=== PATIENT | male | born 1985 | race American Indian/Alaskan Native ===

== ENCOUNTER 2019-04-13 16:29 | Emergency (ER) | payer SELFPAY ==
--- NOTE | 2019-04-13 16:51 | Emergency Department Report ---
- General Stated complaint: HBP/(R) ARM TINGLING Time Seen by Provider: 04/13/19 16:48 Source: patient, EMS Mode of arrival: Ambulatory Limitations: No Limitations - History of Present Illness Initial comments: Patient is a 33-year-old male that presents emergency room with complaints of right-sided numbness and weakness and elevated blood pressure. Patient states his symptoms started 11 AM today. Patient's last known well time 11 AM. Patient denies chest pain shortness of breath. Patient states she's never officially been diagnosed with high blood pressure. Patient arrived via EMS. Patient ambulatory in the ER. MD Complaint: focal weakness, numbness -: Sudden Location: RUE, R hand, RLE Severity: severe Quality: numbness Consistency: constant Improves with: none Worsens with: none Associated Symptoms: headaches - Related Data Previous Rx's Medication Instructions Recorded Last Taken Type Prednisone [predniSONE 10 mg 10 mg PO .TAPER #1 tab.ds.pk 04/13/19 Unknown Rx (6-Day Pack, 21 Tabs)] hydroCHLOROthiazide [HCTZ] 25 mg PO QDAY #30 tablet 04/13/19 Unknown Rx Allergies Allergy/AdvReac Type Severity Reaction Status Date / Time No Known Allergies Allergy Verified 04/13/19 18:45 ED Review of Systems ROS: Stated complaint: HBP/(R) ARM TINGLING Other details as noted in HPI Constitutional: weakness. denies: chills, fever Eyes: denies: eye pain, eye discharge, vision change ENT: denies: ear pain, throat pain Respiratory: denies: cough, shortness of breath, wheezing Cardiovascular: denies: chest pain, palpitations Endocrine: no symptoms reported Gastrointestinal: denies: abdominal pain, nausea, diarrhea Genitourinary: denies: urgency, dysuria Musculoskeletal: denies: back pain, joint swelling, arthralgia Skin: denies: rash, lesions Neurological: headache, weakness, numbness. denies: paresthesias Psychiatric: denies: anxiety, depression Hematological/Lymphatic: denies: easy bleeding, easy bruising ED Past Medical Hx - Past Medical History Previous Medical History?: No - Surgical History Past Surgical History?: No - Family History Family history: no significant - Social History Smoking Status: Current Every Day Smoker Substance Use Type: None - Medications Home Medications: Home Medications Medication Instructions Recorded Confirmed Last Taken Type Prednisone [predniSONE 10 mg 10 mg PO .TAPER #1 tab.ds.pk 04/13/19 Unknown Rx (6-Day Pack, 21 Tabs)] hydroCHLOROthiazide [HCTZ] 25 mg PO QDAY #30 tablet 04/13/19 Unknown Rx ED Physical Exam - General Limitations: No Limitations General appearance: alert, in no apparent distress - Head Head exam: Present: atraumatic, normocephalic - Eye Eye exam: Present: normal appearance - ENT ENT exam: Present: mucous membranes moist - Neck Neck exam: Present: normal inspection - Respiratory Respiratory exam: Present: normal lung sounds bilaterally. Absent: respiratory distress - Cardiovascular Cardiovascular Exam: Present: regular rate, normal rhythm. Absent: systolic murmur, diastolic murmur, rubs, gallop - GI/Abdominal GI/Abdominal exam: Present: soft, normal bowel sounds - Rectal Rectal exam: Present: deferred - Extremities Exam Extremities exam: Present: normal inspection - Back Exam Back exam: Present: normal inspection - Neurological Exam Neurological exam: Present: alert, oriented X3 - Psychiatric Psychiatric exam: Present: normal affect, normal mood - Skin Skin exam: Present: warm, dry, intact, normal color. Absent: rash - Assessment Assessment Interval: Baseline - Level of Consciousness 1a. Level of Consciousness: alert/keenly responsive - LOC Questions 1b. LOC Questions: answers both correctly - LOC Command 1c. LOC Commands: performs tasks correctly - Best Gaze 2. Best Gaze: normal - Visual 3. Visual: no visual loss - Facial Palsy 4. Facial Palsy: normal symmetrical movement - Motor Arm 5a. Motor Arm Left: no drift 5b. Motor Arm Right: no drift - Motor Leg 6a. Motor Leg Left: no drift 6b. Motor Leg Right: no drift - Limb Ataxia 7. Limb Ataxia: absent - Sensory 8. Sensory: mild/moderate sensory loss - Best Language 9. Best Language: no aphasia - Dysarthria 10. Dysarthria: normal - Extinction and Inattention 11. Extinction/Inattention: no abnormality - Scoring Total Score: 1 Stroke Severity: Minor Stroke ED Course Vital Signs 04/13/19 04/13/19 04/13/19 16:46 18:19 18:40 Temperature 97.9 F Pulse Rate 76 70 85 Respiratory 18 18 Rate Blood Pressure 188/111 166/104 Blood Pressure 166/93 [Left] O2 Sat by Pulse 100 100 Oximetry 04/13/19 04/13/19 19:05 20:20 Temperature 98.2 F 98.2 F Pulse Rate 78 77 Respiratory 16 16 Rate Blood Pressure Blood Pressure 156/94 142/91 [Left] O2 Sat by Pulse 100 100 Oximetry - Reevaluation(s) Reevaluation #1: I discussed plan of care with patient. Patient agrees plan of care. Patient will be given aspirin and hydralazine for his blood pressure. 04/13/19 17:43 Reevaluation #2: Asians blood pressure improved. I discussed all results with patient. I disc ussed plan of care outpatient. Patient agrees with plan of care and admission. Patient will be admitted to the hospital service. 04/13/19 18:35 - Consultations Consultation #1: I Discussed case with neurologist. Neurologist saw the patient. Dr. Pineda recommends admission for stroke workup to include MRI of head and neck. 04/13/19 17:37 Consultation #2: Hospitalist consult for admission. Hospitalist admit patient. 04/13/19 18:36 ED Medical Decision Making - Lab Data Result diagrams: 04/13/19 17:39 04/13/19 17:39 - EKG Data -: EKG Interpreted by Me EKG shows normal: sinus rhythm, axis, intervals, QRS complexes, ST-T waves Rate: normal - Radiology Data Radiology results: report reviewed, image reviewed interpreted by me: No acute findings on chest x-ray. No acute findings on CT scan of the head. - Medical Decision Making Patient is 33-year-old male that presents emergency room with complaints of numbness to the right upper and lower extremity and elevated blood pressure. Neurologist consultation early in the ER stay. Neurologist recommends admission. Patient found to have elevated blood pressure given hydralazine. Patient's labs unremarkable. Patient admitted to the hospitalist service. - Differential Diagnosis CVA. Encephalopathy. Hypertensive urgency. Critical Care Time: Yes Critical care time in (mins) excluding proc time.: 35 Critical care attestation.: If time is entered above; I have spent that time in minutes in the direct care of this critically ill patient, excluding procedure time. Critical Care Time: 35 minutes ED Disposition Clinical Impression: Weakness, Right sided numbness, Hypertensive emergency Stroke Qualifiers: CVA mechanism: unspecified Qualified Code(s): I63.9 - Cerebral infarction, unspecified Headache Qualifiers: Headache type: unspecified Headache chronicity pattern: acute headache Intractability: not intractable Qualified Code(s): R51 - Headache Disposition: TO HOME OR SELFCARE Is pt being admited?: Yes Does the pt Need Aspirin: No Condition: Stable Prescriptions: hydroCHLOROthiazide [HCTZ] 25 mg PO QDAY #30 tablet Prednisone [predniSONE 10 mg (6-Day Pack, 21 Tabs)] 10 mg PO .TAPER #1 tab.ds.pk Referrals: PRIMARY CARE, [Primary Care Provider] - 7 Days Time of Disposition: 18:37
[2019-04-13] MEDS ORDERED: hydrALAZINE 20 MG/1 ML INJ IV ONE (17:39)
--- NOTE | 2019-04-13 17:47 | Emergency Department Report ---
ED Neuro Deficit HPI - General Chief Complaint: High BP Stated Complaint: HBP/(R) ARM TINGLING Time Seen by Provider: 04/13/19 16:48 Source: patient, RN/MD, EMS Mode of arrival: Ambulatory Limitations: No Limitations - History of Present Illness Initial Comments: [facility] STAT Neurology Consult Chief Complaint: Right-sided numbness HPI: Asked to see this patient in emergent telemedicine consultation utilizing interactive audio and video technologies. Consultation was performed with assistance of ancillary / medical staff at bedside. Verbal consent to perform the examination with telemedicine was obtained. Patient agreed to proceed with the consultation for acute stroke protocol. 33-year-old right-handed -[place] male who comes to the emergency room for evaluation of right-sided numbness, dizziness, and headaches. Patient denies any past medical history. He denies any history of migraine headaches. He does not take any medications or aspirin. He has not followed up with a primary care in quite some time. Patient states around 11 AM, he had just finished taking shower when he had right hand numbness and tingling. He then became dizzy and described a headache all over his head. He also had tingling all over his head. He described the numbness and tingling going from his right hand up into his forearm. He called EMS, and then noted right leg numbness and tingling. While in the ER, he also was noted to have some mild right-sided weakness. He does have some neck pain. However, he denies any recent neck trauma or fall. No recent cervical manipulation. He was noted to be hypertensive in the ER at 188/111 which is new for him. PMH: Denies. SOC: Positive for tobacco abuse and alcohol use. No illicit drug use. Patient is . FMH: Negative for stroke. Positive for hypertension. ROS: 13 point review of systems were reviewed with the patient, and are all negative with the exception of the aforementioned in the history of present illness. VS: Temperature is 97.9 F, pulse 76, respiration 18, blood pressure 188/111, oxygen saturation 100% Exam: Patient is in no apparent distress. Patient appears as stated age. No obvious acute respiratory or cardiac distress. Patient is well groomed and well-nourished. 1a- LOC: Keenly responsive - 0 1b- LOC questions: Answers both questions correctly - 0 1c- LOC commands- Performs both tasks correctly- 0 2- Gaze: Normal; no gaze paresis or gaze deviation - 0 3- Visual Benz: normal, no Visual field deficit - 0 4- Facial movements: no facial palsy - 0 5- Upper limb motor right arm drift - 1 6- Lower limb motor right leg drift - 1 7- Limb Coordination: absent ataxia - 0 8- Sensory: right arm and leg sensory loss - 1 9- Language - No aphasia - 0 10- Speech - No dysarthria -0 11- Neglect / Extinction - none found - 0 NIHSS score: 3 Diagnostic Data: CT head and labs are pending Medical Data Reviewed: 1.Data?reviewed include clinical labs, radiology,?and medical tests; 2.Tests?results discussed w/performing or interpreting physician; 3.Obtaining/reviewing old medical records; 4.Obtaining?case history from another source; 5.Independent?review of image, tracing, or specimen. Medical Decision Making: - Extensive number of diagnosis or management options are considered below. - Extensive amount of complex data reviewed. - High risk of complication and/or morbidity or mortality are associated with differential diagnostic considerations below. - There may be?uncertain?outcome and increased probability of prolonged functional impairment or high probability of severe prolonged functional impairment associated with some of these differential diagnosis. Differential Diagnosis for Stroke: 1.?Cardioembolic?stroke 2. Small vessel disease/lacune 3. Thromboembolic, cfgiie-ck-sjqdyi mechanism 4.?Hypercoagulable?state-related infarct 5. Transient ischemic attack 6. Thrombotic mechanism, large artery disease Assessment: 1. Right-sided numbness and weakness. Possible stroke versus cervical spine pathology. 2. Possible hypertension 3. Tobacco abuse Recommendations: Patient can be admitted to the hospital for further work-up of his symptoms. Start the patient on a baby aspirin. Allow permissive hypertension. Check MRI brain with and without contrast to rule out any acute intracranial process or demyelinating process. Check MRI of the cervical spine with and without contrast to rule out any acute cervical cord process or demyelinating process. Check echocardiogram to gauge his cardiac function. Check carotid ultrasound. Maintain the patient on telemetry to look for paroxysmal atrial fibrillation. Consult PT, OT, and ST. Check hemoglobin A1c, lipid panel, and urine drug screen. Continue supportive care. Thank you for allowing [facility] to participate in the care of your patient. Please call me, Dr. Grier, with any questions at [phone]. Case discussed with the ER staff and Dr. Cleaning. Severity: severe - Related Data Home Medications: Home Medications Medication Instructions Recorded Confirmed Last Taken No Known Home Medications [No 04/13/19 04/13/19 Unknown Reported Home Medications] Allergies/Adverse Reactions: Allergies Allergy/AdvReac Type Severity Reaction Status Date / Time No Known Allergies Allergy Unverified 04/13/19 16:45 ED Review of Systems ROS: Stated complaint: HBP/(R) ARM TINGLING Other details as noted in HPI Constitutional: weakness. denies: chills, fever Eyes: denies: eye pain, eye discharge, vision change ENT: denies: ear pain, throat pain Respiratory: denies: cough, shortness of breath, wheezing Cardiovascular: denies: chest pain, palpitations Endocrine: no symptoms reported Gastrointestinal: denies: abdominal pain, nausea, diarrhea Genitourinary: denies: urgency, dysuria Musculoskeletal: denies: back pain, joint swelling, arthralgia Skin: denies: rash, lesions Neurological: headache, weakness, numbness. denies: paresthesias Psychiatric: denies: anxiety, depression Hematological/Lymphatic: denies: easy bleeding, easy bruising ED Past Medical Hx - Past Medical History Previous Medical History?: No - Surgical History Past Surgical History?: No - Social History Smoking Status: Current Every Day Smoker Substance Use Type: None - Medications Home Medications: Home Medications Medication Instructions Recorded Confirmed Last Taken Type No Known Home Medications [No 04/13/19 04/13/19 Unknown History Reported Home Medications] ED Neuro Physical Exam - General Limitations: No Limitations General appearance: alert, in no apparent distress Suspected Stroke: Yes - NIHSS Assessment Interval: Baseline 1a. Level of Consciousness: alert/keenly responsive 1b. LOC Questions: answers both correctly 1c. LOC Commands: performs tasks correctly 2. Best Gaze: normal 3. Visual: no visual loss 4. Facial Palsy: normal symmetrical movement 5b. Motor Arm Right: drift 5a. Motor Arm Left: no drift 6a. Motor Leg Left: no drift 6b. Motor Leg Right: drift 7. Limb Ataxia: absent 8. Sensory: mild/moderate sensory loss 9. Best Language: no aphasia 10. Dysarthria: normal 11. Extinction/Inattention: no abnormality Total Score: 3 Stroke Severity: Minor Stroke ED Course Vital Signs 11/17/19 16:46 Temperature 97.9 F Pulse Rate 76 Respiratory 18 Rate Blood Pressure 188/111 O2 Sat by Pulse 100 Oximetry Critical care attestation.: If time is entered above; I have spent that time in minutes in the direct care of this critically ill patient, excluding procedure time. ED Disposition Clinical Impression: Stroke Disposition: DC-[id number] OP ADMIT IP TO THIS HOSP Is pt being admited?: Yes Does the pt Need Aspirin: Yes Condition: Stable Referrals: PRIMARY CARE, [Primary Care Provider] - 3-5 Days
[2019-04-13 17:48] LABS: Basophils # (Auto) 0.1 K/mm3 (0.0-0.1); Basophils % (Auto) 1.4 % (0.0-1.8); Eosinophils # (Auto) 0.5 K/mm3 (0.0-0.4); Eosinophils % (Auto) 8.8 % (0.0-4.3); Hematocrit 42.6 % (35.5-45.6); Hemoglobin 13.8 gm/dl (11.8-15.2); Lymphocytes # (Auto) 1.7 K/mm3 (1.2-5.4); Lymphocytes % (Auto) 28.8 % (13.4-35.0); Mean Corpuscular HGB Conc 32 % (32-34); Mean Corpuscular Volume 79 fl (84-94); Monocytes # (Auto) 0.4 K/mm3 (0.0-0.8); Monocytes % (Auto) 7.6 % (0.0-7.3); Platelet Count 208 K/mm3 (140-440); Red Cell Distribution Width 15.4 % (13.2-15.2)
[2019-04-13 17:59] LABS: INR 1.03 (0.87-1.13)
[2019-04-13 18:00] LABS: Partial Thromboplastin Time 29.5 Sec. (24.2-36.6)
--- NOTE | 2019-04-13 18:06 | XRay Report ---
CHEST 1 VIEW INDICATION / CLINICAL INFORMATION: Weakness. COMPARISON: 07/06/2009 FINDINGS: SUPPORT DEVICES: None. HEART / MEDIASTINUM: No significant abnormality. LUNGS / PLEURA: No significant pulmonary or pleural abnormality. No pneumothorax. ADDITIONAL FINDINGS: No significant additional findings. IMPRESSION: 1. No significant change Signer Name: Bird Ruiz MD Signed: 04/13/2019 6:01 PM Workstation Name: [id number]
[2019-04-13 18:10] LABS: Creatine Kinase MB 1.2 ng/mL (0.0-4.0)
[2019-04-13 18:12] LABS: Alanine Aminotransferase 14 units/L (7-56); Albumin 4.8 g/dL (3.9-5); BUN/Creatinine Ratio 9; Blood Urea Nitrogen 10 mg/dL (9-20); Calcium 9.6 mg/dL (8.4-10.2); Hemolysis Index 7
--- NOTE | 2019-04-13 18:18 | Cat Scan Report ---
CT head/brain wo con INDICATION / CLINICAL INFORMATION: 33 years Male; Weakness. TECHNIQUE: Routine CT head without contrast. All CT scans at this location are performed using CT dos e reduction for ALARA by means of automated exposure control. COMPARISON: None. FINDINGS: BRAIN / INTRACRANIAL CONTENTS: No acute hemorrhage, mass effect, midline shift, hydrocephalus, or acu te, large territorial infarct. No chronic infarct or focal atrophy. Normal brain volume and ventricul ar/sulcal size for age. Isolated periventricular white matter low density areas seen around the atriu m of the left lateral ventricle. This is nonspecific. Considering the age, these could be dilated per ivascular space. Other possibility is a focal chronic lacune. CRANIOCERVICAL JUNCTION: No significant abnormality. ORBITS: No significant abnormality of visualized orbits. SINUSES / MASTOIDS: No significant abnormality of the visualized paranasal sinuses or mastoid air jorge ls. ADDITIONAL FINDINGS: None. IMPRESSION: I do not see an acute parenchymal lesion or acute territorial infarction. Signer Name: Bryn Maier MD Signed: 04/13/2019 6:13 PM Workstation Name: [id number]
[2019-04-13] MEDS: ASPIRIN 325 MG TAB PO ONE ×2 (18:20→18:29)
[2019-04-13] MEDS ORDERED: hydroCHLOROthiazide 25 MG TAB PO ONE (18:36)
--- NOTE | 2019-04-13 19:15 | XRay Report ---
XR spine cervical 2-3V INDICATION / CLINICAL INFORMATION: arm pain. COMPARISON: None available. FINDINGS: BONES/JOINT(S): No vertebral fracture. Normal alignment. Minimal degenerative disc disease at C4-5 an d C5-6 with mild endplate osteophyte formation. SOFT TISSUES: No significant abnormality. ADDITIONAL FINDINGS: None. Signer Name: Mayo Harley MD Signed: 04/13/2019 7:11 PM Workstation Name: [id number]
[2019-04-13 19:31] LABS: Amphetamine Screen,Urine PRESUMPTIVE NEGATIVE; Benzodiazepines Screen,Urine PRESUMPTIVE NEGATIVE; Cannabinoid Screen,Urine PRESUMPTIVE NEGATIVE; Cocaine Screen,Urine PRESUMPTIVE NEGATIVE; Methadone Screen,Urine PRESUMPTIVE NEGATIVE; Opiate Screen,Urine PRESUMPTIVE NEGATIVE
--- NOTE | 2019-04-13 19:59 | Event Note ---
33 YO Male presents to ED for evaluation. Pt found to have Cervical Radiculopathy with Right arm numbness and weakness. Pt treeted with supportive care. Pt medically optimized and back to usual state of health. Pt discharged home and instructed to f/u pcp 3-5 days. Pt discharge with physical therapy. Pt counseled regarding need for surgical intervention if symptoms nonresponsive to physical therapy. ED Physical Exam - General Limitations: No Limitations General appearance: alert, in no apparent distress - Head Head exam: Present: atraumatic, normocephalic - Eye Eye exam: Present: normal appearance - ENT ENT exam: Present: mucous membranes moist - Neck Neck exam: Present: normal inspection - Respiratory Respiratory exam: Present: normal lung sounds bilaterally. Absent: respiratory distress - Cardiovascular Cardiovascular Exam: Present: regular rate, normal rhythm. Absent: systolic murmur, diastolic murmur, rubs, gallop - GI/Abdominal GI/Abdominal exam: Present: soft, normal bowel sounds - Rectal Rectal exam: Present: deferred - Extremities Exam Extremities exam: Present: normal inspection - Back Exam Back exam: Present: normal inspection - Neurological Exam Neurological exam: Present: alert, oriented X3 - Psychiatric Psychiatric exam: Present: normal affect, normal mood - Skin Skin exam: Present: warm, dry, intact, normal color. Absent: rash - Assessment Assessment Interval: Baseline - Level of Consciousness 1a. Level of Consciousness: alert/keenly responsive - LOC Questions 1b. LOC Questions: answers both correctly - LOC Command 1c. LOC Commands: performs tasks correctly - Best Gaze 2. Best Gaze: normal - Visual 3. Visual: no visual loss - Facial Palsy 4. Facial Palsy: normal symmetrical movement - Motor Arm 5a. Motor Arm Left: no drift 5b. Motor Arm Right: no drift - Motor Leg 6a. Motor Leg Left: no drift 6b. Motor Leg Right: no drift - Limb Ataxia 7. Limb Ataxia: absent - Sensory 8. Sensory: mild/moderate sensory loss - Best Language 9. Best Language: no aphasia - Dysarthria 10. Dysarthria: normal - Extinction and Inattention 11. Extinction/Inattention: no abnormality
[2019-04-13 20:21] VITALS: BP 142/91
== END 2019-04-13 20:22 | disposition home or self-care (01) ==
LOC: ED 16:29
DX: I63.9 Cerebral infarction, unspecified (principal); I16.1 Hypertensive emergency; R20.0 Anesthesia of skin; I10 Essential (primary) hypertension; F17.200 Nicotine dependence, unspecified, uncomplicated; Z79.899 Other long term (current) drug therapy
CPT/HCPCS: 36415; 70450; 71045; 72040; 80053; 80307; 82550; 82553; 84484; 85025; 85610; 85730; 93005; 93010; 96374; 99291; J0360

== ENCOUNTER 2020-11-24 12:47 | Emergency (ER) | payer SELFPAY ==
[2020-11-24 16:46] VITALS: BP 166/114
== END 2020-11-24 16:51 | disposition left against medical advice (07) ==
LOC: ED 12:47
DX: R22.0 Localized swelling, mass and lump, head (principal); Z53.21 Procedure and treatment not carried out due to patient leaving prior to being seen by health care provider